=== PATIENT | female | born 1975 | race Caucasian/White ===

== ENCOUNTER 2019-08-26 09:57 | Day surgery (SDC) | payer BC ==
[~2019-08-26 09:57] MED LIST: Buffered Lidocaine 1% SYRIN* 1 ML/SYRINGE INTRADERM ONE; Dexamethasone IV* 4 MG/ML 1 ML (4 MG) IV SLOW PU ONE; Famotidine IV* 10 MG/ML 2 ML (20 mg) IV ONE; Lactated Ringers 1000 ML Bag* 1,000 ML IV SCH
[2019-08-26] MEDS ORDERED: oxyCODONE/Acetamin 5/325 MG* TAB PO PRN (10:45)
[2019-08-26] MEDS ORDERED: HYDROcodone/ACETAMIN 5-325 MG* 1 TAB PO PRN (10:45)
[2019-08-26] MEDS ORDERED: DiMENhydriNATE IV* 50 MG/ML VIAL IV PUSH PRN (10:45)
[2019-08-26] MEDS ORDERED: Naloxone* 0.4 MG/ML 1 ML VIAL IV PRN (10:45)
[2019-08-26] MEDS ORDERED: fentaNYL* 50 MCG/ML 2 ML VIAL (100 MCG VIAL) IV PRN (10:45)
[2019-08-26] MEDS ORDERED: Dexamethasone IV* 4 MG/ML 1 ML (4 MG) ONE (11:06)
[2019-08-26] MEDS ORDERED: Buffered Lidocaine 1% SYRIN* 1 ML/SYRINGE INTRADERM ONE (11:06)
[2019-08-26] MEDS ORDERED: Famotidine IV* 10 MG/ML 2 ML (20 mg) ONE (11:06)
[2019-08-26] MEDS ORDERED: ceFOXitin 2 GM IVPREMIX* 2 GM/50 ML BAG ONE (11:24)
[2019-08-26] MEDS ORDERED: fentaNYL* 50 MCG/ML 2 ML VIAL (100 MCG VIAL) ONE (11:52)
[2019-08-26] MEDS ORDERED: Midazolam* 1 MG/ML 5 ML VIAL (5 MG) ONE (11:52)
[2019-08-26] MEDS ORDERED: Lidocaine 2% PF * 5 ML VIAL ONE (11:55)
[2019-08-26] MEDS ORDERED: Ketorolac INJ* 30 MG/ML 1 ML VIAL ONE (12:14)
[2019-08-26] MEDS ORDERED: Phenylephrine 40 MCG/ML SYRINGE ONE (12:22)
[2019-08-26] MEDS ORDERED: EPHEDrine (Pressors)* 50 MG/ML VIAL ONE (12:38)
[2019-08-26] MEDS ORDERED: Ondansetron INJ* 2 MG/ML VIAL ONE (12:40)
[2019-08-26] MEDS ORDERED: Acetaminophen TAB* 325 MG PO ONE (13:27)
[2019-08-26] MEDS ORDERED: Acetaminophen TAB* 325 MG ONE (13:29)
[2019-08-26 14:25] VITALS: BP 122/81
--- NOTE | 2019-08-27 01:30 | OP ---
DATE OF OPERATION: 08/26/19 [facility] DATE OF : 73 SURGEON: Samuel Potter MD SPRING FITTER: None. ANESTHESIA: General endotracheal tube. PRE-OP DIAGNOSES: 1. Embedded IUD. 2. Dysfunctional uterine bleeding. POST-OP DIAGNOSES: 1. Embedded IUD. 2. Dysfunctional uterine bleeding. OPERATIVE PROCEDURE: D and C, hysteroscopy, removal of IUD, and endometrial ablation. ESTIMATED BLOOD LOSS: Minimal. SPECIMEN: Includes endometrium. FINDINGS: On exam under anesthesia, the uterus was mid position. There was second-degree prolapse. On hysteroscopy, there was stenosis of the cervix to the internal os with the IUD hung up there. Once past the stenosis, there was a normal cavity without polyps or fibroids. DESCRIPTION OF PROCEDURE: The patient identified, procedure identified as a D and C, hysteroscopy, removal of IUD, and endometrial ablation. The patient was taken to the operating room, prepped and draped in the usual fashion in the dorsal lithotomy position under general anesthesia. Two single-tooth tenaculums were placed on the anterior lip of the cervix. The hysteroscope was inserted. Initial findings were noted of stenosis of the cervix. The IUD was removed using uterine dressing forceps using a technique of displacement anteriorly and then retraction with removal of the IUD intact. The hysteroscope was further utilized to inspect the cavity around the area of stenosis. The cervix was easily dilated up to a #30 Jamshid dilator. The sharp curette was inserted and sharp curettage performed. After the hysteroscope used to inspect the cavity, the cavity was found to be free of any polyps or fibroids and after sharp curettage, the Nova-Sure device was opened. The array was checked. NovaSure device was placed. It would not place all the way through the fundus. It would not open with the 6.5 cm length setting, hence the stetting was dropped to 6 and then to 5.5 and with the 5.5 setting the device opened completely with a width of 4.8 cm. Power setting was 145. The CO2 perforation test was performed and the device passed. NovaSure ablation took place for 70 seconds. At the end of the procedure, the hysteroscope was reinserted and no perforations were noted and a very good ablation was noted. There was again noted a stenotic area in the endocervix, which had not been ablated. All instruments were removed from the vagina. All sponge and instrument counts were correct and the patient returned to recovery room in stable condition. [id number]/[id number] #: [id number] CONNIE
== END 2019-08-26 14:38 | disposition home or self-care (01) ==
LOC: OR 09:57
PROVIDERS: ATTEND Obstetrics & Gynecology
DX: N92.1 Excessive and frequent menstruation with irregular cycle (principal); N84.0 Polyp of corpus uteri; T83.39XD Other mechanical complication of intrauterine contraceptive device, subsequent encounter; Z87.891 Personal history of nicotine dependence; N88.2 Stricture and stenosis of cervix uteri
CPT/HCPCS: 81025; 88305; A9270-GY; J0694; J1100; J1885; J2250; J2405; J3010